=== PATIENT | female | born 2000 | race American Indian/Alaskan Native ===

== ENCOUNTER 2021-06-27 12:44 | Emergency (ER) | payer SELFPAY ==
[2021-06-27 12:47] VITALS: BP 120/72
[2021-06-27] MEDS ORDERED: SODIUM CHLORIDE 0.9% 1000 ML 1,000 ML IV ONE (14:57)
[2021-06-27] MEDS ORDERED: MORPHINE 4 MG/1 ML INJ IV ONE (14:57)
[2021-06-27] MEDS ORDERED: METOCLOPRAMIDE 10 MG/2 ML INJ IV ONE (14:57)
[2021-06-27] MEDS ORDERED: FAMOTIDINE 20 MG TAB PO ONE (14:58)
--- NOTE | 2021-06-27 14:58 | Emergency Department Report ---
ED N/V/D HPI - General Chief complaint: Nausea/Vomiting/Diarrhea Stated complaint: NAUSEA PUI?: No Time Seen by Provider: 06/27/21 14:50 Source: patient Mode of arrival: Stretcher Limitations: No Limitations - History of Present Illness Initial comments: 21 year old female presents to ED via EMS with complaints of nausea and vomiting and epigastric pain. Patient states her symptoms started this morning. She reports several episodes of vomiting since this morning. She reports mainly bilious emesis. She states that her epigastric pain has been constant since the vomiting started this morning. She denies any diarrhea or constipation. Her last bowel movement was this morning. She denies any UTI symptoms, abnormal vaginal discharge, fever or chills. She states that she is currently on her menstrual cycle. Patient states she has had similar symptoms in past. She has seen GI for it and has had endoscopy. She has also had US of GB and she states it was normal. She states she was told by GI that she has GERD. She states she was prescribed prilosec which she was taking but she admits that when her pain got better she stopped taking it. She denies ETOH abuse. She denies illicit drug use. She denies NSAID abuse. She thinks it could be related to spicy/acidic foods she has been eating. MD complaint: nausea, vomiting, abdominal pain -: Gradual, This morning - Related Data Previous Rx's Medication Instructions Recorded Last Taken Type Famotidine [Pepcid] 20 mg PO BID #30 tablet 06/27/21 Unknown Rx HYDROcodone/APAP 5-325 [[place] 1 each PO Q4HR PRN #10 tablet 06/27/21 Unknown Rx 5/325] Metoclopramide [Reglan] 10 mg PO Q8HR PRN #15 tab 06/27/21 Unknown Rx Omeprazole Magnesium [PriLOSEC Otc] 20 mg PO BID #60 tab 06/27/21 Unknown Rx Allergies Allergy/AdvReac Type Severity Reaction Status Date / Time shellfish derived Allergy Swelling Verified 06/27/21 12:54 ED Review of Systems ROS: Stated complaint: NAUSEA Other details as noted in HPI Comment: All other systems reviewed and negative Constitutional: denies: chills, fever Eyes: denies: eye pain, eye discharge, vision change ENT: denies: ear pain, throat pain, dental pain, hearing loss, epistaxis, congestion Respiratory: denies: cough, shortness of breath, SOB with exertion, SOB at rest, wheezing Cardiovascular: denies: chest pain, palpitations, edema, syncope, paroxysmal nocturnal dyspnea Gastrointestinal: abdominal pain, nausea, vomiting. denies: diarrhea, constipation, hematemesis, hematochezia Genitourinary: denies: urgency, dysuria, frequency, hematuria, discharge, abnormal menses, dyspareunia Musculoskeletal: denies: back pain, joint swelling, arthralgia, myalgia Skin: denies: rash, lesions, change in color, change in hair/nails, pruritus Neurological: denies: headache, weakness, numbness, paresthesias, confusion, abnormal gait, vertigo Psychiatric: denies: anxiety, depression, auditory hallucinations, visual hallucinations, homicidal thoughts, suicidal thoughts Hematological/Lymphatic: denies: easy bleeding, easy bruising, swollen glands ED Past Medical Hx - Past Medical History Previous Medical History?: Yes Hx GERD: Yes Hx Asthma: Yes - Medications Home Medications: Home Medications Medication Instructions Recorded Confirmed Last Taken Type Famotidine [Pepcid] 20 mg PO BID #30 tablet 06/27/21 Unknown Rx HYDROcodone/APAP 5-325 [[place] 1 each PO Q4HR PRN #10 tablet 06/27/21 Unknown Rx 5/325] Metoclopramide [Reglan] 10 mg PO Q8HR PRN #15 tab 06/27/21 Unknown Rx Omeprazole Magnesium [PriLOSEC Otc] 20 mg PO BID #60 tab 06/27/21 Unknown Rx ED Physical Exam - General Limitations: No Limitations General appearance: alert, in distress (actively vomiting in room ) - Head Head exam: Present: atraumatic, normocephalic, normal inspection - Eye Eye exam: Present: normal appearance, PERRL, EOMI Pupils: Present: normal accommodation - ENT ENT exam: Present: mucous membranes dry - Neck Neck exam: Present: normal inspection, full ROM - Respiratory Respiratory exam: Present: normal lung sounds bilaterally. Absent: respiratory distress, wheezes - Cardiovascular Cardiovascular Exam: Present: regular rate, normal rhythm, normal heart sounds - GI/Abdominal GI/Abdominal exam: Present: soft, tenderness (Epigastric ), guarding (mild epig astric ). Absent: distended, rebound - Neurological Exam Neurological exam: Present: alert, oriented X3, CN II-XII intact, normal gait - Psychiatric Psychiatric exam: Present: normal affect, normal mood - Skin Skin exam: Present: intact ED Course Vital Signs 06/27/21 12:46 Temperature 98.1 F Pulse Rate 98 H Respiratory 16 Rate Blood Pressure 120/72 [Left] O2 Sat by Pulse 97 Oximetry ED Medical Decision Making - Lab Data Result diagrams: 06/27/21 15:17 06/27/21 15:17 - Radiology Data Radiology results: report reviewed Patient: ALEX SPEARS MR#: [id number] : 2000 Acct:[id number] Age/Sex: 21 / F ADM Date: 06/27/21 Loc: ED Attending Dr: Ordering Physician: LON ARMIJO Date of Service: 06/27/21 Procedure(s): CT abdomen pelvis w con Accession Number(s): [id number] cc: LON ARMIJO CT ABDOMEN AND PELVIS WITH CONTRAST INDICATION / CLINICAL INFORMATION: Epigastric pain/wbc . TECHNIQUE: Axial CT images were obtained through the abdomen and pelvis after 100 cc of Omnipaque [address] scans at this location are performed using CT dose reduction for ALARA by means of automated exposure control. COMPARISON: None available. FINDINGS: LOWER CHEST: No significant abnormality. LIVER: No acute abnormality. There is focal fatty infiltration adjacent to the falciform ligament. GALLBLADDER: No significant abnormality. BILE DUCTS: No significant abnormality. PANCREAS: No significant abnormality. SPLEEN: No significant abnormality. ADRENALS: No significant abnormality. RIGHT KIDNEY / URETER: No significant abnormality. LEFT KIDNEY / URETER: No significant abnormality. STOMACH / SMALL BOWEL: No significant abnormality. COLON: The colon is relatively collapsed. There is possible wall thickening noted in the right and transverse colon. APPENDIX: No significant abnormality. PERITONEUM: No free fluid. No free air. No fluid collection. LYMPH NODES: No significant adenopathy. AORTA / ARTERIES: No significant abnormality. IVC / VEINS: No significant abnormality. URINARY BLADDER: No significant abnormality. REPRODUCTIVE ORGANS: No significant abnormality. ADDITIONAL FINDINGS: None. SKELETAL SYSTEM: No acute abnormality. IMPRESSION: 1. There is no obstruction, inflammation, or free air. There are no abnormal fluid collections. 2. There is possible wall thickening noted in the right and transverse colon. . The possibility of colitis is considered but this is not definitive. This may simply be due to collapsed state of the bowel Signer Name: Wiley Lin MD Signed: 06/27/2021 5:38 PM Workstation Name: [id number] Transcribed By: SS Dictated By: Wiley Lin MD Electronically Authenticated By: Wiley Lin MD Signed Date/Time: 06/27/211737 DD/ 32 TD/TT: - Medical Decision Making 1800: Patient states that her symptoms are much better after IV fluids, Reglan, Pepcid and morphine. She appears to be feeling better. She has not had any continued vomiting since the meds. Repeat abdominal exam soft, mild epigastric tenderness but no guarding or rebound or rigidity. Patient is not toxic. She is neurologically intact with a normal gait. CT abdomen pelvis with IV contrast showsThere is no obstruction, inflammation, or free air. There are no abnormal fluid collections. 2. There is possible wall thickening noted in the right and transverse colon. . The possibility of colitis is considered but this is not definitive. This may simply be due to collapsed state of the bowel . Labs reviewed, CBC shows leukocytosis with a white count of 16.5 otherwise unremarkable. CMP including lipase normal. hCG is negative. Urinalysis normal. I do not believe this is related to colitis as patient is not having any diarrhea. I suspect that this is a flareup of gastritis. Elevated white count likely related to demargination from a stressful state from vomiting. I do not suspect sepsis. There is no indication for any additional testing, surgical consult, or admission to the hospital at this time. Discussed all results with patient. She will be restarted on her Prilosec and and also given Pepcid. She will be given Reglan to take for nausea and vomiting and hydrocodone for pain. She will be given referral to [facility] as well as a local PCP. Patient expressed understanding for instructions and agree with plan. Patient was stable at time of discharge. Critical care attestation.: If time is entered above; I have spent that time in minutes in the direct care of this critically ill patient, excluding procedure time. ED Disposition Clinical Impression: Epigastric pain, Gastritis, GERD (gastroesophageal reflux disease) Disposition: 01 HOME / SELF CARE / HOMELESS Is pt being admited?: No Does the pt Need Aspirin: No Condition: Stable Instructions: Gastritis, Adult, Food Choices for Gastroesophageal Reflux Dise ase, Adult, Gastroesophageal Reflux Disease, Adult, [id number] Additional Instructions: Recommend taking the Prilosec as prescribed and daily. You can also take Pepcid with it for the next 2 weeks. Take the hydrocodone as prescribed for pain and take the Reglan as prescribed for nausea and vomiting. Recommend that you try to avoid any spicy foods, acidic foods, caffeine greasy foods or fried foods for at least 2 weeks. Drink lots of water. Follow-up with your primary care doctor and GI specialist either this week or next week. Return to the ER if your symptoms changes or worsens in any way. Prescriptions: HYDROcodone/APAP 5-325 [[place] 5/325] 1 each PO Q4HR PRN #10 tablet PRN Reason: Pain Famotidine [Pepcid] 20 mg PO BID #30 tablet Omeprazole Magnesium [PriLOSEC Otc] 20 mg PO BID #60 tab Metoclopramide [Reglan] 10 mg PO Q8HR PRN #15 tab PRN Reason: Vomiting Referrals: [facility] [Provider Group] - 3-5 Days PRIMARY CARE,MD [Primary Care Provider] - 3-5 Days Forms: Work/School Release Form(ED) Time of Disposition: 17:47
[2021-06-27 15:51] LABS: Alanine Aminotransferase 10 units/L (7-56); Albumin 4.2 g/dL (3.9-5); Blood Urea Nitrogen 9 mg/dL (7-17); Calcium 9.5 mg/dL (8.4-10.2); Hemolysis Index 6
[2021-06-27 15:52] LABS: BUN/Creatinine Ratio 13
[2021-06-27 16:01] LABS: Basophils % (Auto) 0.2 % (0.0-1.8); Hemoglobin 11.1 gm/dl (10.1-14.3); Lymphocytes # (Auto) 1.1 K/mm3 (1.2-5.4); Lymphocytes % (Auto) 6.8 % (13.4-35.0); Mean Corpuscular HGB Conc 31 % (30-34); Mean Corpuscular Volume 82 fl (79-97); Monocytes # (Auto) 0.5 K/mm3 (0.0-0.8); Platelet Count 333 K/mm3 (140-440); Red Blood Count 4.37 M/mm3 (3.65-5.03)
[2021-06-27 16:27] LABS: Bacteria,Urine 1+ /HPF (Negative); Bilirubin,Urine NEG (Negative); Blood,Urine SM (Negative); Color,Urine Yellow (Yellow); Mucus,Urine 3+ /HPF; Urobilinogen,Urine < 2.0 mg/dL (<2.0)
--- NOTE | 2021-06-27 17:43 | Cat Scan Report ---
CT ABDOMEN AND PELVIS WITH CONTRAST INDICATION / CLINICAL INFORMATION: Epigastric pain/wbc . TECHNIQUE: Axial CT images were obtained through the abdomen and pelvis after 100 cc of Omnipaque [address] scans at this location are performed using CT dose reduction for ALARA by means of automated exposure control. COMPARISON: None available. FINDINGS: LOWER CHEST: No significant abnormality. LIVER: No acute abnormality. There is focal fatty infiltration adjacent to the falciform ligament. GALLBLADDER: No significant abnormality. BILE DUCTS: No significant abnormality. PANCREAS: No significant abnormality. SPLEEN: No significant abnormality. ADRENALS: No significant abnormality. RIGHT KIDNEY / URETER: No significant abnormality. LEFT KIDNEY / URETER: No significant abnormality. STOMACH / SMALL BOWEL: No significant abnormality. COLON: The colon is relatively collapsed. There is possible wall thickening noted in the right and tr ansverse colon. APPENDIX: No significant abnormality. PERITONEUM: No free fluid. No free air. No fluid collection. LYMPH NODES: No significant adenopathy. AORTA / ARTERIES: No significant abnormality. IVC / VEINS: No significant abnormality. URINARY BLADDER: No significant abnormality. REPRODUCTIVE ORGANS: No significant abnormality. ADDITIONAL FINDINGS: None. SKELETAL SYSTEM: No acute abnormality. IMPRESSION: 1. There is no obstruction, inflammation, or free air. There are no abnormal fluid collections. 2. There is possible wall thickening noted in the right and transverse colon. . The possibility of co litis is considered but this is not definitive. This may simply be due to collapsed state of the kathleen l Signer Name: Wiley Lin MD Signed: 06/27/2021 5:38 PM Workstation Name: [id number]
== END 2021-06-27 18:02 | disposition home or self-care (01) ==
LOC: ED 12:44
DX: K29.70 Gastritis, unspecified, without bleeding (principal); K21.9 Gastro-esophageal reflux disease without esophagitis; J45.909 Unspecified asthma, uncomplicated
CPT/HCPCS: 36415; 74177; 80053; 81001; 83690; 83735; 84703; 85025; 96361; 96374; 96375; 99284; J2270; J2765; J7030; Q9967; Q0162

== ENCOUNTER 2021-10-07 21:58 | Emergency (ER) | payer OTHER ==
[2021-10-08] MEDS ORDERED: SODIUM CHLORIDE 0.9% 1000 ML 1,000 ML IV ONE (00:13)
[2021-10-08] MEDS ORDERED: ONDANSETRON 4 MG/2 ML INJ IV STA ×2 (00:13→02:27)
[2021-10-08] MEDS ORDERED: HYOSCYAMINE SUBL 0.125 MG TAB SL ONE (00:13)
[2021-10-08 00:37] LABS: Hematocrit 34.7 % (30.3-42.9); Hemoglobin 10.9 gm/dl (10.1-14.3); Mean Corpuscular HGB Conc 32 % (30-34); Mean Corpuscular Volume 81 fl (79-97); Platelet Count 301 K/mm3 (140-440); Red Blood Count 4.28 M/mm3 (3.65-5.03); Red Cell Distribution Width 15.7 % (13.2-15.2)
[2021-10-08] MEDS ORDERED: MORPHINE 4 MG/1 ML INJ IV STA (00:51)
[2021-10-08 00:56] LABS: Alanine Aminotransferase 11 units/L (7-56); Albumin 4.3 g/dL (3.9-5); Blood Urea Nitrogen 12 mg/dL (7-17); Calcium 8.9 mg/dL (8.4-10.2); Hemolysis Index 6
[2021-10-08 00:57] LABS: BUN/Creatinine Ratio 17
--- NOTE | 2021-10-08 02:02 | Cat Scan Report ---
CT ABDOMEN AND PELVIS WITH CONTRAST INDICATION / CLINICAL INFORMATION: Lower ABD Pain. TECHNIQUE: Axial CT images were obtained through the abdomen and pelvis after 100 cc Omnipaque [address] scans at this location are performed using CT dose reduction for ALARA by means of automated exposure control. COMPARISON: CT of abdomen and pelvis 06/27/2021 FINDINGS: LOWER CHEST: No significant abnormality of the imaged chest. LIVER: No significant abnormality. GALLBLADDER: No significant abnormality. BILE DUCTS: No significant abnormality. SPLEEN: No significant abnormality. PANCREAS: No significant abnormality. ADRENALS: No significant abnormality. RIGHT KIDNEY / URETER: No significant abnormality. LEFT KIDNEY / URETER: No significant abnormality. STOMACH / DUODENUM / SMALL BOWEL: No significant abnormality. COLON: No significant abnormality. APPENDIX: No significant abnormality. PERITONEUM: No free air or free fluid are present within the abdomen or pelvis. LYMPH NODES: No significant adenopathy. AORTA / ARTERIES: No significant abnormality. IVC / VEINS: No significant abnormality. URINARY BLADDER: No significant abnormality. REPRODUCTIVE ORGANS: No significant abnormality. ADDITIONAL ABDOMINAL/PELVIC FINDINGS: None. SKELETAL SYSTEM: No significant abnormality. IMPRESSION: 1. No significant abnormality. Signer Name: Jovan Wan II, MD Signed: 10/08/2021 1:57 AM Workstation Name: [id number]
[2021-10-08] MEDS ORDERED: KETOROLAC 30 MG/1 ML INJ IV STA (02:17)
[2021-10-08 02:34] LABS: Anisocytosis 1+; Band Neutrophils # (Manual) 0.1 K/mm3; Basophils % (Manual) 0 % (0.0-1.8); Eosinophils % (Manual) 0.5 % (0.0-4.3); Platelet Estimate Consistent w Auto; Total Cells Counted 200
[2021-10-08 03:33] LABS: Bilirubin,Urine NEG (Negative); Blood,Urine NEG (Negative); Color,Urine Yellow (Yellow); Protein,Urine <15 mg/dL mg/dL (Negative); Urobilinogen,Urine < 2.0 mg/dL (<2.0)
[2021-10-08] MEDS ORDERED: METOCLOPRAMIDE 10 MG/2 ML INJ IV STA (04:05)
[2021-10-08] MEDS ORDERED: diphenhydrAMINE 50 MG/ML VIAL IV STA (04:05)
[2021-10-08] MEDS ORDERED: KETOROLAC 30 MG/1 ML INJ IV ONE (06:00)
--- NOTE | 2021-10-08 06:56 | Emergency Department Report ---
ED General Adult HPI - General Chief complaint: Abdominal Pain Stated complaint: VOMITING/DIZZY Time Seen by Provider: 10/08/21 00:07 Source: patient Mode of arrival: Ambulatory Limitations: No Limitations - History of Present Illness Severity scale (0 -10): 5 - Related Data Previous Rx's Medication Instructions Recorded Last Taken Type Famotidine [Pepcid] 20 mg PO BID #30 tablet 06/27/21 Unknown Rx HYDROcodone/APAP 5-325 [[place] 1 each PO Q4HR PRN #10 tablet 06/27/21 Unknown Rx 5/325] Metoclopramide [Reglan] 10 mg PO Q8HR PRN #15 tab 06/27/21 Unknown Rx Omeprazole Magnesium [PriLOSEC Otc] 20 mg PO BID #60 tab 06/27/21 Unknown Rx Ciprofloxacin HCl 500 mg PO BID #14 10/08/21 Unknown Rx Hyoscyamine Subl [Levsin Sl 0.125 0.125 mg SL Q6HR PRN #20 tab 10/08/21 Unknown Rx TAB] metroNIDAZOLE [Flagyl] 500 mg PO Q12HR #14 tab 10/08/21 Unknown Rx Allergies Allergy/AdvReac Type Severity Reaction Status Date / Time shellfish derived Allergy Swelling Verified 06/27/21 12:54 ED Review of Systems ROS: Stated complaint: VOMITING/DIZZY Other details as noted in HPI Comment: All other systems reviewed and negative ED Past Medical Hx - Past Medical History Hx GERD: Yes Hx Asthma: Yes - Medications Home Medications: Home Medications Medication Instructions Recorded Confirmed Last Taken Type Famotidine [Pepcid] 20 mg PO BID #30 tablet 06/27/21 Unknown Rx HYDROcodone/APAP 5-325 [[place] 1 each PO Q4HR PRN #10 tablet 06/27/21 Unknown Rx 5/325] Metoclopramide [Reglan] 10 mg PO Q8HR PRN #15 tab 06/27/21 Unknown Rx Omeprazole Magnesium [PriLOSEC Otc] 20 mg PO BID #60 tab 06/27/21 Unknown Rx Ciprofloxacin HCl 500 mg PO BID #14 10/08/21 Unknown Rx Hyoscyamine Subl [Levsin Sl 0.125 0.125 mg SL Q6HR PRN #20 tab 10/08/21 Unknown Rx TAB] metroNIDAZOLE [Flagyl] 500 mg PO Q12HR #14 tab 10/08/21 Unknown Rx ED Physical Exam - General Limitations: No Limitations General appearance: alert, in no apparent distress - Head Head exam: Present: atraumatic, normocephalic - Eye Eye exam: Present: normal appearance, PERRL, EOMI Pupils: Present: normal accommodation - ENT ENT exam: Present: normal exam, normal orophraynx, mucous membranes moist, TM's normal bilaterally - Neck Neck exam: Present: normal inspection, full ROM - Respiratory Respiratory exam: Present: normal lung sounds bilaterally. Absent: respiratory distress - Cardiovascular Cardiovascular Exam: Present: regular rate, normal rhythm. Absent: systolic murmur, diastolic murmur, rubs, gallop - GI/Abdominal GI/Abdominal exam: Present: soft, normal bowel sounds - Extremities Exam Extremities exam: Present: normal inspection, normal capillary refill - Back Exam Back exam: Present: normal inspection. Absent: CVA tenderness (R), CVA tenderness (L) - Neurological Exam Neurological exam: Present: alert, oriented X3, CN II-XII intact - Psychiatric Psychiatric exam: Present: normal affect, normal mood - Skin Skin exam: Present: warm, dry, intact, normal color. Absent: rash ED Course Vital Signs 10/07/21 10/08/21 10/08/21 22:58 00:59 06:11 Temperature 98.1 F Pulse Rate 89 Respiratory 16 16 14 Rate Blood Pressure 121/69 [Right] O2 Sat by Pulse 98 Oximetry ED Medical Decision Making - Lab Data Result diagrams: 10/08/21 00:20 10/08/21 00:20 Critical care attestation.: If time is entered above; I have spent that time in minutes in the direct care of this critically ill patient, excluding procedure time. ED Disposition Clinical Impression: Abdominal pain Disposition: HOME / SELF CARE / HOMELESS Is pt being admited?: No Does the pt Need Aspirin: No Condition: Stable Instructions: Abdominal Pain, Adult, Abdominal Pain (ED) Prescriptions: Ciprofloxacin HCl 500 mg PO BID #14 metroNIDAZOLE [Flagyl] 500 mg PO Q12HR #14 tab Hyoscyamine Subl [Levsin Sl 0.125 TAB] 0.125 mg SL Q6HR PRN #20 tab PRN Reason: abdominal cramps and spasms Referrals: [facility] [Provider Group] - 3-5 Days
[2021-10-08 07:13] VITALS: BP 136/67
== END 2021-10-08 07:38 | disposition home or self-care (01) ==
LOC: ED 21:58
DX: R10.9 Unspecified abdominal pain (principal); R11.10 Vomiting, unspecified; R42 Dizziness and giddiness; K21.9 Gastro-esophageal reflux disease without esophagitis; J45.909 Unspecified asthma, uncomplicated; Z91.013 Allergy to seafood; Z79.899 Other long term (current) drug therapy
CPT/HCPCS: 96361; 96374; 96375; 96376; 99284; J1200; J1885; J2270; J2405; J2765; J7030; Q0162

== ENCOUNTER 2021-12-01 13:35 | Emergency (ER) | payer OTHER ==
[2021-12-01] MEDS ORDERED: ONDANSETRON 4 MG/2 ML INJ IV ONE ×2 (15:21→16:28)
[2021-12-01] MEDS ORDERED: MORPHINE 4 MG/1 ML INJ IV ONE (15:21)
--- NOTE | 2021-12-01 15:38 | Emergency Department Report ---
ED General Adult HPI - General Chief complaint: Nausea/Vomiting/Diarrhea Stated complaint: ABD PAIN Time Seen by Provider: 12/01/21 15:14 Source: patient, EMS Mode of arrival: Stretcher Limitations: No Limitations - History of Present Illness Initial comments: Patient presents with complaints of generalized abdominal pain, sharp, non radiating, 8/10, not worsened or relieved by anything. Endorses nausea, non bloody non bilious vomiting. Last BM was today and diarrheal. Endorses flatulence. Denies dysuria, frequency, urgency, vaginal bleeding, discharge. Has been having diarrhea x 1 day (1 bout) without blood or mucus. Denies recent travel, known sick contacts, antibiotics. Ate out yesterday evening. Severity scale (0 -10): 0 - Related Data Previous Rx's Medication Instructions Recorded Last Taken Type Famotidine [Pepcid] 20 mg PO BID #30 tablet 06/27/21 Unknown Rx HYDROcodone/APAP 5-325 [[place] 1 each PO Q4HR PRN #10 tablet 06/27/21 Unknown Rx 5/325] Metoclopramide [Reglan] 10 mg PO Q8HR PRN #15 tab 06/27/21 Unknown Rx Omeprazole Magnesium [PriLOSEC Otc] 20 mg PO BID #60 tab 06/27/21 Unknown Rx Ciprofloxacin HCl 500 mg PO BID #14 10/08/21 Unknown Rx Hyoscyamine Subl [Levsin Sl 0.125 0.125 mg SL Q6HR PRN #20 tab 10/08/21 Unknown Rx TAB] metroNIDAZOLE [Flagyl] 500 mg PO Q12HR #14 tab 10/08/21 Unknown Rx Acetaminophen/Codeine [Tylenol 1 tab PO Q6H PRN 3 Days #12 tab 12/01/21 Unknown Rx /Codeine # 3 tab] Azithromycin 1 tab PO DAILY 3 Days #3 tab 12/01/21 Unknown Rx Metoclopramide [Reglan ORAL LIQ] 10 mg PO Q6H PRN #30 tab 12/01/21 Unknown Rx Allergies Allergy/AdvReac Type Severity Reaction Status Date / Time shellfish derived Allergy Swelling Verified 12/01/21 13:47 ED Review of Systems ROS: Stated complaint: ABD PAIN Other details as noted in HPI Comment: All other systems reviewed and negative Constitutional: denies: chills, fever ED Past Medical Hx - Past Medical History Hx GERD: Yes Hx Asthma: Yes - Medications Home Medications: Home Medications Medication Instructions Recorded Confirmed Last Taken Type Famotidine [Pepcid] 20 mg PO BID #30 tablet 06/27/21 Unknown Rx HYDROcodone/APAP 5-325 [[place] 1 each PO Q4HR PRN #10 tablet 06/27/21 Unknown Rx 5/325] Metoclopramide [Reglan] 10 mg PO Q8HR PRN #15 tab 06/27/21 Unknown Rx Omeprazole Magnesium [PriLOSEC Otc] 20 mg PO BID #60 tab 06/27/21 Unknown Rx Ciprofloxacin HCl 500 mg PO BID #14 10/08/21 Unknown Rx Hyoscyamine Subl [Levsin Sl 0.125 0.125 mg SL Q6HR PRN #20 tab 10/08/21 Unknown Rx TAB] metroNIDAZOLE [Flagyl] 500 mg PO Q12HR #14 tab 10/08/21 Unknown Rx Acetaminophen/Codeine [Tylenol 1 tab PO Q6H PRN 3 Days #12 tab 12/01/21 Unknown Rx /Codeine # 3 tab] Azithromycin 1 tab PO DAILY 3 Days #3 tab 12/01/21 Unknown Rx Metoclopramide [Reglan ORAL LIQ] 10 mg PO Q6H PRN #30 tab 12/01/21 Unknown Rx ED Physical Exam - General Limitations: No Limitations General appearance: alert, in no apparent distress - Head Head exam: Present: atraumatic, normocephalic - Eye Eye exam: Present: PERRL, EOMI - ENT ENT exam: Present: mucous membranes moist, other (airway patent) - Neck Neck exam: Present: other (supple; no JVD) - Respiratory Respiratory exam: Present: other (good air entry, nml I:E, CTAB, no use of LINDY) - Cardiovascular Cardiovascular Exam: Present: regular rate. Absent: rubs, gallop - GI/Abdominal GI/Abdominal exam: Present: other (normal BS; soft; tender to palpation diffusely) - Extremities Exam Extremities exam: Present: full ROM. Absent: tenderness - Back Exam Back exam: Present: full ROM. Absent: CVA tenderness (R), CVA tenderness (L) - Neurological Exam Neurological exam: Present: alert, oriented X3, CN II-XII intact. Absent: motor sensory deficit - Skin Skin exam: Present: warm, normal color ED Course Vital Signs 12/01/21 12/01/21 12/01/21 13:42 15:33 19:28 Temperature 98.6 F Pulse Rate 80 62 77 Respiratory 16 17 17 Rate Blood Pressure 147/88 135/63 116/60 [Left] O2 Sat by Pulse 100 99 100 Oximetry 12/01/21 20:48 Temperature Pulse Rate 77 Respiratory 16 Rate Blood Pressure 110/60 [Left] O2 Sat by Pulse 100 Oximetry ED Medical Decision Making - Lab Data Result diagrams: 12/01/21 15:59 12/01/21 15:59 Laboratory Tests 12/01/21 12/01/21 12/01/21 15:59 15:59 15:59 WBC 14.9 H RBC 4.11 Hgb 10.7 Hct 33.4 MCV 81 MCH 26 L MCHC 32 RDW 15.7 H Plt Count 273 Lymph % (Auto) 6.8 L [place] % (Auto) 3.4 Eos % (Auto) 0.0 Baso % (Auto) 0.1 Lymph # (Auto) 1.0 L [place] # (Auto) 0.5 Eos # (Auto) 0.0 Baso # (Auto) 0.0 Seg Neutrophils % 89.7 H Seg Neutrophils # 13.4 H Sodium 140 Potassium 3.6 Chloride 107.2 H Carbon Dioxide 19 L Anion Gap 17 BUN 10 Creatinine 0.8 Estimated GFR > 60 BUN/Creatinine Ratio 13 Glucose 109 H Calcium 9.5 Total Bilirubin 0.60 AST 12 ALT 11 Alkaline Phosphatase 62 Total Protein 6.6 Albumin 4.4 Albumin/Globulin Ratio 2.0 Lipase 11 L HCG, Qual Negative Urine Color Urine Turbidity Urine pH Ur Specific [place] Urine Protein Urine Glucose (UA) Urine Ketones Urine Blood Urine Nitrite Urine Bilirubin Urine Urobilinogen Ur Leukocyte Esterase Urine WBC (Auto) Urine RBC (Auto) U Epithel Cells (Auto) Calcium Oxalate Crystal Urine Mucus 12/01/21 Unknown WBC RBC Hgb Hct MCV MCH MCHC RDW Plt Count Lymph % (Auto) [place] % (Auto) Eos % (Auto) Baso % (Auto) Lymph # (Auto) [place] # (Auto) Eos # (Auto) Baso # (Auto) Seg Neutrophils % Seg Neutrophils # Sodium Potassium Chloride Carbon Dioxide Anion Gap BUN Creatinine Estimated GFR BUN/Creatinine Ratio Glucose Calcium Total Bilirubin AST ALT Alkaline Phosphatase Total Protein Albumin Albumin/Globulin Ratio Lipase HCG, Qual Urine Color Yellow Urine Turbidity Slightly-cloudy Urine pH 8.0 H Ur Specific [place] 1.020 Urine Protein 100 mg/dl Urine Glucose (UA) 50 Urine Ketones 80 Urine Blood Lg Urine Nitrite Neg Urine Bilirubin Neg Urine Urobilinogen < 2.0 Ur Leukocyte Esterase Sm Urine WBC (Auto) 68.0 H Urine RBC (Auto) > 182.0 U Epithel Cells (Auto) 7.0 Calcium Oxalate Crystal 1+ Urine Mucus 3+ CT abd/pelvis: no acute abnormality; R ovarian cyst with trace free fluid U cxs reviewed 12/03/2021-> no growth - Medical Decision Making Diff dz: likely 2/2 gastroenteritis (possibly food borne) +/- ruptured ovarian cyst. Ectopic , UTI, appendicitis, SBO and other acute surgical abdomen ruled out. Received morphine 4 mg IV x 1, zofran 4 mg IV x 2. Pain, n/v resolved. AUTOMATIC EDGER AWARxe consulted prior to Rxs Critical care attestation.: If time is entered above; I have spent that time in minutes in the direct care of this critically ill patient, excluding procedure time. ED Disposition Clinical Impression: Ovarian cyst, Gastroenteritis Disposition: 01 HOME / SELF CARE / HOMELESS Is pt being admited?: No Does the pt Need Aspirin: No Condition: Stable Instructions: Food Choices to Help Relieve Diarrhea, Adult, Ovarian Cyst, [id number] Additional Instructions: Follow up with your regular doctor within 2 - 4 days. Return to the ER if your symptoms worsen or do not improve. Prescriptions: Azithromycin 1 tab PO DAILY 3 Days #3 tab Metoclopramide [Reglan ORAL LIQ] 10 mg PO Q6H PRN #30 tab PRN Reason: Nausea And Vomiting Acetaminophen/Codeine [Tylenol /Codeine # 3 tab] 1 tab PO Q6H PRN 3 Days #12 tab PRN Reason: Pain , Severe (7-10) Referrals: NICOLLE KIDD MD [Primary Care Provider] - 3-5 Days Time of Disposition: 19:00
[2021-12-01 16:27] LABS: Basophils % (Auto) 0.1 % (0.0-1.8); Hematocrit 33.4 % (30.3-42.9); Hemoglobin 10.7 gm/dl (10.1-14.3); Lymphocytes % (Auto) 6.8 % (13.4-35.0); Mean Corpuscular HGB Conc 32 % (30-34); Mean Corpuscular Volume 81 fl (79-97); Monocytes # (Auto) 0.5 K/mm3 (0.0-0.8); Monocytes % (Auto) 3.4 % (0.0-7.3); Platelet Count 273 K/mm3 (140-440); Red Blood Count 4.11 M/mm3 (3.65-5.03); Red Cell Distribution Width 15.7 % (13.2-15.2)
[2021-12-01 16:38] LABS: Alanine Aminotransferase 11 units/L (7-56); Albumin 4.4 g/dL (3.9-5); BUN/Creatinine Ratio 13; Blood Urea Nitrogen 10 mg/dL (7-17); Calcium 9.5 mg/dL (8.4-10.2); Hemolysis Index 2
[2021-12-01 17:04] LABS: Bilirubin,Urine NEG (Negative); Blood,Urine LG (Negative); Calcium Oxalate Crystals,Urine 1+; Color,Urine Yellow (Yellow); Mucus,Urine 3+ /HPF; Urobilinogen,Urine < 2.0 mg/dL (<2.0)
[2021-12-01 17:07] LABS: RBC,Urine > 182.0 /HPF (0.0-6.0)
--- NOTE | 2021-12-01 19:21 | Cat Scan Report ---
CT ABDOMEN AND PELVIS WITH CONTRAST HISTORY: abdominal pain. COMPARISON: None. TECHNIQUE: CT images of the abdomen and pelvis were obtained following administration of intravenous contrast. All CT scans at this location are performed using CT dose reduction for ALARA by means of automated exposure control. CONTRAST: 100 ml of intravenous contrast administered. FINDINGS: Lungs/bones: Lung bases are clear. There is no acute osseous abnormality. Abdomen/pelvis: The liver, gallbladder, spleen, pancreas, adrenals, kidneys, and proximal GI tract a ppear unremarkable. Urinary bladder and reproductive organs are unremarkable with tiny right ovarian cyst measuring 1.2 c m on image 131 which is likely functional. A trace amount of pelvic free fluid is present which is li gustavo physiologic in a woman of this age. No acute colonic abnormality identified. IMPRESSION: 1. No acute abnormality identified. Signer Name: Shreyas Baez MD Signed: 12/01/2021 7:17 PM Workstation Name: [id number][id number]
[2021-12-01] MEDS ORDERED: METOCLOPRAMIDE 10 MG/2 ML INJ IV ONE (19:46)
[2021-12-01 20:49] VITALS: BP 110/60
== END 2021-12-01 20:49 | disposition home or self-care (01) ==
LOC: ED 13:35
DX: N83.209 Unspecified ovarian cyst, unspecified side (principal); K52.9 Noninfective gastroenteritis and colitis, unspecified; Z91.013 Allergy to seafood
CPT/HCPCS: 36415; 74177; 80053; 81001; 83690; 84703; 85025; 87086; 96374; 96375; 99284; J2270; J2405; J2765; Q9967